=== PATIENT | female | born 1990 | race African-American/Black ===

== ENCOUNTER 2021-02-02 17:56 | Emergency (ER) | payer OTHER ==
[~2021-02-02] VITALS: Ht 172.7 cm; Wt 92.5 kg
[~2021-02-02 17:56] MED LIST: AMOXICILLIN 50500 M1 PO; APAP500 OR; CHEWABLE PRENA1 EACH PO; DERMOPLAST SPRA56 ML; FERRO-TIME325 MG PO; FLEXERIL PO; IBUPROFEN 600600 M1 PO; IBUPROFEN 800800 M1 PO; IRON325 PO; KEFLEX500 MG PO; NOHOMEMEDICATIONS; NORCO 5-325 TA1 EACH PO; PRENATAL; TRINATE TABLET1 TAB PO; TUCKS MEDICATE1 EAC1; ZOFRAN ODT4 M1 PO
[2021-02-02 19:12] VITALS: BP 157/94
== END 2021-02-02 19:12 | disposition home or self-care (01) ==
LOC: ER 17:56
PROVIDERS: Physician Assistant
DX: B34.9 Viral infection, unspecified (principal); Z20.822 Contact with and (suspected) exposure to COVID-19

== ENCOUNTER 2021-06-18 09:40 | Emergency (ER) | payer OTHER ==
[~2021-06-18] VITALS: Ht 175.3 cm; Wt 88.5 kg
[2021-06-18 09:41] VITALS: BP 167/97
[2021-06-18] MEDS ORDERED: DOXYCYCLINE 10100 MG PO (10:03)
== END 2021-06-18 10:11 | disposition home or self-care (01) ==
LOC: ER 09:40
PROVIDERS: Emergency Medicine
DX: L03.211 Cellulitis of face (principal); Z20.822 Contact with and (suspected) exposure to COVID-19; Z87.442 Personal history of urinary calculi; Z87.891 Personal history of nicotine dependence; Z79.899 Other long term (current) drug therapy